=== PATIENT | male | born 1945 | race African-American/Black ===

== ENCOUNTER 2018-06-26 20:14 | Emergency (ER) | payer MEDICARE, OTHER ==
[~2018-06-26] VITALS: Ht 177.8 cm; Wt 91.0 kg
[~2018-06-26 20:14] MED LIST: AMLO10TA80 PO; ATEN-42 PO; CEFT1FRO5 IV; CLOT15CR4 TP; FERR-63 PO; GEMF600T4 PO; GLIP10TA10 PO; HYDR25TA PO; LOPE2TAB26 PO; LOSA25TA12 PO; METF-414 PO; METO5TAB86 PO; OMEP20TA2 PO; OXYC-102 PO; PROT40 PO; VANJ5 PO
[2018-06-26 20:16] VITALS: BP 0/0
== END 2018-06-27 01:52 | disposition expired ==
LOC: ER 20:14
DX: I46.9 Cardiac arrest, cause unspecified (principal); I10 Essential (primary) hypertension; J44.9 Chronic obstructive pulmonary disease, unspecified; E11.9 Type 2 diabetes mellitus without complications; Z79.899 Other long term (current) drug therapy; Z88.0 Allergy status to penicillin
CPT/HCPCS: 31500; 99285